=== PATIENT | female | born 1985 | race Caucasian/White ===

== ENCOUNTER 2019-12-21 19:04 | Emergency (ER) | payer BC, SELFPAY ==
[2019-12-21 19:24] VITALS: BP 121/72; PULSE 84; RESP 16; TEMP 36.7; O2SAT 100; BMI 23.0
--- NOTE | 2019-12-21 19:39 | PC.NURSE ---
On triage, pt endorses hx suicidal ideation. Takes meds for depression/anxiety. Denies current intent of self-harm.. Family member at bedside.
[2019-12-21] MEDS: SODIUM CHLORIDE 0.9% 1,000 ML 1000 ML IV (20:26)
[2019-12-21] MEDS: ONDANSETRON 4 MG/2 ML INJ IV (20:26)
[2019-12-21] MEDS: PANTOPRAZOLE 40 MG VIAL IV (20:26)
[2019-12-21 20:32] LABS: Add Manual Diff / Slide Review NO; Basophils Absolute Auto 0 /uL (0-100); Basophils Percent Auto 0.1 % (0-2); Eosinophils Absolute Auto 0 /uL (0-450); Hematocrit 38.3 % (36-46); Hemoglobin 12.8 g/dL (12.0-16.0); Lymphocytes Absolute Auto 600 /uL (1100-4500); Lymphocytes Percent Auto 3.7 % (25-40); Mean Corpuscular HGB Conc 33.5 % (30-36); Mean Corpuscular Hemoglobin 32.4 PG (26-34); Mean Corpuscular Volume 96.7 fL (80-100); Monocytes Absolute Auto 1200 /uL (0-900); Monocytes Percent Auto 7.1 % (3-14); Neutrophils Absolute Auto 15300 /uL (1500-7000); Neutrophils Percent Auto 89.1 % (50-75); Platelet Count 327 X10^3/uL (150-400); Red Blood Cell Count 3.96 X10^6/uL (4.0-5.2); Red Cell Distribution Width 14.3 % (11.6-14.8); White Blood Cell Count 17.2 X10^3/uL (4.5-11.0)
[2019-12-21 20:33] LABS: Alanine Aminotransferase 94 IU/L (<35); Albumin 4.8 g/dL (3.5-5.0); Albumin Globulin Ratio 1.4 (1.0-2.8); Alkaline Phosphatase 65 U/L (38-126); Aspartate Aminotransferase 383 IU/L (14-36); BUN Creatinine Ratio 12.7 (6-22); Blood Urea Nitrogen 10 mg/dL (7-17); Calcium 9.4 mg/dL (8.4-10.2); Carbon Dioxide 22 mmol/L (22-32); Chloride 100 mmol/L (98-107); Estimated Glomerular Filt Rate > 60.0 mL/min (>60); Globulin 3.5 g/dL (1.7-4.1); Glucose 163 mg/dL (70-100); HEMOLYSIS 18 (0-50); Potassium 4.4 mmol/L (3.4-5.1); Sodium 133 mmol/L (137-145); Total Protein 8.3 g/dL (6.3-8.2)
--- NOTE | 2019-12-21 20:36 | ED.NAVMDI ---
HPI - Nausea/Vomiting/Diarrhea General Chief complaint: Nausea/Vomiting/Diarrhea Stated complaint: DEHYDRATION THROWING UP Time Seen by Provider: 12/21/19 20:15 Source: patient Mode of arrival: Ambulatory Limitations: no limitations History of Present Illness HPI Narrative: The patient complains of nausea and vomiting. This was her birthday weekend, she drink heavy last night. She has had multiple episodes of nausea and vomiting since that time. In addition to nausea vomiting, she complains of a headache. She has no visual changes, no confusion. She denies chest pain or dyspnea. She has mild epigastric discomfort. She has no diarrhea with current symptoms. She has no recent illness. She has had no sore throat or fever. She denies cough or dyspnea. She has no urinary complaints. She is not . She is on medications for depression/anxiety. She does smoke marijuana, she has no other drug use. Related Data Allergies Allergy/AdvReac Type Severity Reaction Status Date / Time amoxicillin Allergy Hives Verified 12/21/19 19:32 Penicillins Allergy Hives Verified 12/21/19 19:32 Review of Systems Constitutional Constitutional: Denies chills, Denies fever(s) and Denies weakness Eyes Eyes: Denies change in vision ENT Ears, Nose, Mouth, and Throat: Denies dizziness Comments: Headache. Cardiovascular Cardiovascular: Denies chest pain and Denies dyspnea Respiratory Respiratory: Denies chest congestion, Denies cough and Denies dyspnea Gastrointestinal Gastrointestinal: Denies diarrhea, Reports nausea and Reports vomiting Genitourinary Genitourinary: Denies dysuria Genitourinary: Denies dysuria Comments: Denies Musculoskeletal Musculoskeletal: Denies back pain Integumentary/Breasts Skin/Breast: Denies rash Neurologic Neurologic: Denies confusion, Denies dizziness and Denies weakness Psychiatric Psychiatric: Reports anxiety and Denies confusion Patient History Medical History (Updated 12/21/19 @ 22:25 by Ulices Pham MD) Anxiety (Acute) Depression (Acute) Surgical History (Updated 12/21/19 @ 20:48 by Ulices Pham MD) H/O nasal septoplasty (Acute) Social History Smoking Status: Never smoker Smoking Status: Never smoker alcohol intake frequency: a few times a week Substance Use Type: marijuana Exam Initial Vital Signs Initial Vital Signs: Vital Signs Temperature 98.1 F 12/21/19 19:24 Pulse Rate 84 12/21/19 19:24 Respiratory Rate 16 12/21/19 19:24 Blood Pressure 121/72 12/21/19 19:24 Pulse Oximetry 100 12/21/19 19:24 Const General: cooperative and well developed Nutritional Appearance: well nourished [facility] Head: normal to inspection, normocephalic and atraumatic Mouth: oral mucosae normal Throat: posterior oropharynx normal Eyes General: appearance normal, both eyes and all related structures Eyelids: eyelids normal Conjunctivae: conjunctivae normal Sclera: sclerae normal Pupils: PERRL EOM: EOM intact bilaterally Resp Effort & Inspection: normal respiratory effort and able to speak in complete sentences Auscultation: clear to auscultation bilaterally Cardio Rate: regular rate Rhythm: regular rhythm Heart Sounds: S1 normal, S2 normal, no click, no gallops, no murmurs and no rubs Pulses: normal peripheral pulses GI Inspection: non-distended Palpation: soft, no hepatosplenomegaly, No guarding and No tender Auscultation: normal bowel sounds Back/Spine/Pelvis Back: No CVA tenderness Skin General: no rashes or lesions noted and No petechiae Neuro General: patient alert, patient oriented x3, gait normal and no focal motor deficits Speech: speech normal Extrem General: full ROM, no pedal edema and no calf tenderness Psych Affect: anxious affect Attitude: cooperative Thought Process: normal Course Course Course Narrative: The patient is feeling much better after receiving the IV medications for nausea/vomiting and headache. She is orally hydrating. Her LFTs are elevated, her ultrasound is reassuring. Her liver and gallbladder are normal. I have discussed this with her, suggesting that her we can drinking maybe too much. She should significant back or cease drinking alcohol. Orders Ordered: ED Orders 12/21/19 19:41 Complete Blood Count AUTO DIFF Stat Comprehensive Metabolic Panel Stat Ethanol (ETOH) Stat 12/21/19 21:19 US abdomen limited Stat Discontinued Medications Sodium Chloride (Normal Saline 0.9%) 1,000 mls @ 1,000 mls/hr IV BOLUS ONE Stop: 12/21/19 21:15 Last Infusion: 12/21/19 21:42 Dose: 0 mls/hr Documented by: [employer] Admin: 12/21/19 20:26 Dose: 1,000 mls/hr Documented by: MABEL Ketorolac Tromethamine (Toradol) 30 mg IV NOW ONE Stop: 12/21/19 20:44 Last Admin: 12/21/19 20:50 Dose: 30 mg Documented by: SOL Ondansetron HCl (Zofran) 4 mg IV NOW ONE Stop: 12/21/19 20:17 Last Admin: 12/21/19 20:26 Dose: 4 mg Documented by: MABEL Ondansetron HCl (Zofran Odt Prepack) 1 bottle MISC SEEINSTR ONE Stop: 12/21/19 22:20 Pantoprazole Sodium (Protonix) 40 mg IV NOW ONE Stop: 12/21/19 20:18 Last Admin: 12/21/19 20:26 Dose: 40 mg Documented by: MABEL Vital Signs Vital signs: Vital Signs - 8 hr 12/21/19 19:24 Temperature 98.1 F Pulse Rate 84 Respiratory Rate 16 Blood Pressure 121/72 Pulse Oximetry 100 MDM - Nausea/Vomiting/Diarrhea Lab Data Result diagrams: 12/21/19 19:41 12/21/19 19:41 Labs: Lab Results 12/21/19 12/21/19 12/21/19 Range/Units 19:41 19:41 19:41 WBC 17.2 H (4.5-11.0) X10^3/uL RBC 3.96 L (4.0-5.2) X10^6/uL Hgb 12.8 (12.0-16.0) g/dL Hct 38.3 (36-46) % MCV 96.7 (80-100) fL MCH 32.4 (26-34) PG MCHC 33.5 (30-36) % RDW 14.3 (11.6-14.8) % Plt Count 327 (150-400) X10^3/uL Neut % (Auto) 89.1 H (50-75) % Lymph % (Auto) 3.7 L (25-40) % [place] % (Auto) 7.1 (3-14) % Eos % (Auto) 0.0 L (2-4) % Baso % (Auto) 0.1 (0-2) % Neut # (Auto) 76090 H (8080-7668) /uL Lymph # (Auto) 600 L (4058-7308) /uL [place] # (Auto) 1200 H (0-900) /uL Eos # (Auto) 0 (0-450) /uL Baso # (Auto) 0 (0-100) /uL Sodium 133 L (137-145) mmol/L Potassium 4.4 (3.4-5.1) mmol/L Chloride 100 (98-107) mmol/L Carbon Dioxide 22 (22-32) mmol/L BUN 10 (7-17) mg/dL Creatinine 0.79 (0.52-1.04) mg/dL Estimated GFR > 60.0 (>60) mL/min BUN/Creatinine Ratio 12.7 (6-22) Glucose 163 H (70-100) mg/dL Calcium 9.4 (8.4-10.2) mg/dL Total Bilirubin 2.0 H (0.2-1.3) mg/dL AST 383 H (14-36) IU/L ALT 94 H (<35) IU/L Alkaline Phosphatase 65 (38-126) U/L Total Protein 8.3 H (6.3-8.2) g/dL Albumin 4.8 (3.5-5.0) g/dL Globulin 3.5 (1.7-4.1) g/dL Albumin/Globulin Ratio 1.4 (1.0-2.8) Ethyl Alcohol < 10 ( - 10) mg/dL Point of Care Testing Test Results Negative Urine Dip Bedside Urine Glucose 100 mg/dl Bedside Urine Ketone +++ 80 Urine Specific [place] 1.030 Bedside Urine Occult Blood ++ Bedside Urine pH 6.0 Bedside Urine Protein + 30 Bedside Urine Urobilinogen - Negative Bedside Urine Nitrite - Negative Bedside Urine Leukocytes - Negative Esterase Imaging Data US - abdomen: Radiologist's Impression: [address] [address] Ultrasound Report Signed Patient: Lauren Tate [facility]#: [id number] : 1985Acct:[id number] Age/Sex: 34 / FDate of Service: 12/21/19 Loc: ED Accession Number: [id number] Procedure: US abdomen limited Ordering Provider: Ulices Pham MD PROCEDURE: US ABDOMEN LIMITED INDICATIONS: Vomiting.Elevated LFTs. TECHNIQUE: Real-time scanning was performed of the abdominal and retroperitoneal organs, with image documentation. COMPARISON: None. FINDINGS: Liver: Liver is normal in size and homogeneous in echotexture. Gallbladder: The gallbladder appears normal without gallstones or gallbladder wall thickening. There is no pericholecystic fluid. Sonographic Neumann sign is negative. Biliary ducts: Intrahepatic bile ducts are non-dilated. Extrahepatic bile duct caliber measures 1.4 mm. Normal is 6-7 mm or less in diameter, or 10 mm or less post-cholecystectomy. Pancreas: Visualized portions of the pancreas are sonographically normal. Miscellaneous: No free right upper quadrant fluid. IMPRESSION: Normal right upper quadrant ultrasound. Dictated by: Carlos Mckeon M.D. on 12/21/2019 at 22:07 Approved by: Carlos Mckeon M.D. on 12/21/2019 at 22:09 Discharge Plan Departure Patient Disposition: Home Clinical Impression: Nausea & vomiting Qualifiers: Vomiting type: unspecified Vomiting Intractability: intractable Qualified Code(s): R11.2 - Nausea with vomiting, unspecified Alcoholic hepatitis Qualifiers: Ascites presence: without ascites Qualified Code(s): K70.10 - Alcoholic hepatitis without ascites Instructions: DI for Nausea -- Adult Activity Restrictions/Additional Instructions: Zofran every 4 hours as needed for nausea. I would recommend a bland diet until your you are certain you are feeling better, then advance your diet as tolerated. Follow-up with your doctor in the next 1-2 weeks to recheck her liver blood test. I recommend you avoid alcohol. Return here as needed.
[2019-12-21] MEDS: KETOROLAC 60 MG/2 ML VIAL 30 MG IV (20:50)
[2019-12-21 21:02] LABS: Ethanol (ETOH) < 10 mg/dL
--- NOTE | 2019-12-21 21:19 | DI.US.S_ITS ---
PROCEDURE: US ABDOMEN LIMITED INDICATIONS: Vomiting.Elevated LFTs. TECHNIQUE: Real-time scanning was performed of the abdominal and retroperitoneal organs, with image documentation. COMPARISON: None. FINDINGS: Liver: Liver is normal in size and homogeneous in echotexture. Gallbladder: The gallbladder appears normal without gallstones or gallbladder wall thickening. There is no pericholecystic fluid. Sonographic Neumann sign is negative. Biliary ducts: Intrahepatic bile ducts are non-dilated. Extrahepatic bile duct caliber measures 1.4 mm. Normal is 6-7 mm or less in diameter, or 10 mm or less post-cholecystectomy. Pancreas: Visualized portions of the pancreas are sonographically normal. Miscellaneous: No free right upper quadrant fluid. IMPRESSION: Normal right upper quadrant ultrasound. Dictated by: Carlos Mckeon M.D. on 12/21/2019 at 22:07 Approved by: Carlos Mckeon M.D. on 12/21/2019 at 22:09
[2019-12-21] MEDS: ONDANSETRON 4 MG ODT PREPACK 1 BOTTLE MISC (22:31)
[2019-12-21 22:35] VITALS: BP 121/58; PULSE 83; RESP 16; O2SAT 98
== END 2019-12-21 22:35 | disposition home or self-care (01) ==
PROVIDERS: Emergency Provider Emergency Medicine
DX: K70.10 Alcoholic hepatitis without ascites (principal); R11.2 Nausea with vomiting, unspecified
CPT/HCPCS: 36415; 76705; 80053; 80320; 81003; 81025; 85025; 96361; 96374; 96375; 99284; C9113; J1885; J2405

== ENCOUNTER 2021-03-03 23:25 | Emergency (ER) | payer BC, SELFPAY ==
[2021-03-03 23:33] VITALS: BP 111/75; PULSE 72; RESP 15; TEMP 37; O2SAT 100; BMI 29.2
--- NOTE | 2021-03-03 23:38 | DI.RAD.S_ITS ---
PROCEDURE: XR FINGER RT MIN 2V INDICATIONS: Fall with deformity TECHNIQUE: AP hand, 2 views of the 3rd digit acquired. COMPARISON: None. FINDINGS: Bones: There is volar dislocation the 3rd metacarpophalangeal joint. No definite fracture identified. Soft tissues: No suspicious soft tissue calcifications. IMPRESSION: 1. Dislocation of the 3rd metacarpophalangeal joint. Dictated by: Brian Frote M.D. on 03/03/2021 at 23:53 Approved by: Brian Forte M.D. on 03/03/2021 at 23:53
--- NOTE | 2021-03-03 23:51 | PC.NURSE ---
pt fell backwards tonight breaking her fall with her right hand, now c/o pain to the right hand d/t injury to the 3rd digit, digit is noted with deformity with decreased motor and sensory. pt is able to move the other digits without difficulty. pt denies hitting her head
--- NOTE | 2021-03-04 01:16 | ED.UPPEXIN ---
HPI - Extremity Injury (Upper) General Chief Complaint: Extremity Injury, Upper Stated Complaint: rt middle finger injury, fall Time Seen by Provider: 03/04/21 01:15 Source: patient Mode of arrival: Ambulatory History of Present Illness HPI narrative: Patient is a 34-year-old female who presents with is right middle fever deformity. She said she was outside urinating in a [place] when she fell backwards. Obvious dislocation at MCP joint. No numbness tingling or other injury Related Data Allergies Allergy/AdvReac Type Severity Reaction Status Date / Time amoxicillin Allergy Hives Verified 12/21/19 19:32 Penicillins Allergy Hives Verified 12/21/19 19:32 Review of Systems Review of Systems Narrative: GENERAL: Denies chills,fever HEENT: Denies throat pain RESPIRATORY: Denies dyspnea, cough, wheezing CARDIOVASCULAR: Denies chest pain, palpitations GASTROINTESTINAL: Denies nausea, vomiting MUSCULOSKELETAL: See HPI SKIN: No rash, no laceration, no pruritus NEUROLOGIC: Denies weakness, dizziness, headache, numbness 8 point review of systems is negative except for those stated above and HPI Patient History Medical History (Updated 03/04/21 @ 01:21 by Mary Ngo DO) Anxiety Depression Surgical History (Updated 12/21/19 @ 20:48 by Ulices Pham MD) H/O nasal septoplasty Social History Smoking Status: Never smoker Smoking Status: Never smoker alcohol intake frequency: 0-2 drinks per day Substance Use Type: does not use Exam Initial Vital Signs Initial Vital Signs: Vital Signs Temperature 98.6 F 03/03/21 23:33 Pulse Rate 72 03/03/21 23:33 Respiratory Rate 15 03/03/21 23:33 Blood Pressure 111/75 03/03/21 23:33 Pulse Oximetry 100 03/03/21 23:33 GENERAL: Well-appearing, well-nourished and in no acute distress. CARDIOVASCULAR: peripheral pulses in tact, cap refill <2 sec RESPIRATORY: No respiratory distress, speaks in full sentences without difficulty EXTREMITIES: Normal range of motion, no clubbing or edema. Neurovascularly intact Right hand MCP dislocation miuddle finger, cap refill less than 2 sec NEUROLOGICAL: Cranial nerves II through XII grossly intact. Normal gait and speech. SKIN: Warm, dry, no petechiae, no rashes or lesions. Procedures Orthopedic Joint Reduction Joint #1: Side: right Joint Reduction Location: finger (MCP) Local Anesthesia: lidocaine 1% Amount of anesthesic used (mL): 2 Technique used: direct manipulation Post-reduction neuro exam: intact and no change Post-reduction vascular: intact and no change Course Orders Ordered: ED Orders 03/03/21 23:38 XR finger RT min 2V Stat Vital Signs Vital signs: Vital Signs - 8 hr 03/03/21 23:33 03/04/21 01:20 Temperature 98.6 F Pulse Rate 72 68 Respiratory Rate 15 16 Blood Pressure 111/75 128/67 Pulse Oximetry 100 100 [facility] - Extremity Injury (Upper) Imaging Data Extremity x-ray #1: Radiologist's Impression: PROCEDURE:? XR FINGER RT MIN 2V ? INDICATIONS:? Fall with deformity ? TECHNIQUE:? AP hand, 2 views of the 3rd digit acquired.? ? COMPARISON:? None. ? FINDINGS:? ? Bones:? There is volar dislocation the 3rd metacarpophalangeal joint.? No definite fracture identified. ? Soft tissues:? No suspicious soft tissue calcifications.? ? IMPRESSION:? ? 1. Dislocation of the 3rd metacarpophalangeal joint.? ? ? Dictated by: Brian Forte M.D. on 03/03/2021 at 23:53 ? ? Approved by: Brian Forte M.D. on 03/03/2021 at 23:53 ? [facility] Narrative Medical decision making narrative: Patient's finger was easily reduced without issue Discharge Plan Departure Patient Disposition: Home Clinical Impression: Dislocation closed, finger Qualifiers: Encounter type: initial encounter Qualified Code(s): S63.259A - Unspecified dislocation of unspecified finger, initial encounter Instructions: DI for Finger Dislocation Activity Restrictions/Additional Instructions: *You have been diagnosed with finger dislocation *What to do: Expected to be sore for the next couple of days. Ice elevate *Continue to take medications as directed [place] norris *Follow up with your primary care provider in 2-3 days or call [phone] *Return to ER if you should have increasing redness pain swelling, numbness or tingling or any new, worsening or concerning symptoms
[2021-03-04 01:20] VITALS: BP 128/67; PULSE 68; RESP 16; O2SAT 100
[2021-03-04] MEDS: LIDOCAINE 1% (PF) 4 ML (01:26)
== END 2021-03-04 01:27 | disposition home or self-care (01) ==
PROVIDERS: Emergency Provider Emergency Medicine
DX: S63.262A Dislocation of metacarpophalangeal joint of right middle finger, initial encounter (principal); W19.XXXA Unspecified fall, initial encounter; Y93.89 Activity, other specified
CPT/HCPCS: 73140; 99281; 99283